=== PATIENT | female | born 1975 | race Two or more races ===

== ENCOUNTER 2019-08-11 11:31 | Outpatient (CLI) | payer OTHER ==
[2019-08-11] MEDS ORDERED: PRILOSEC OTC20 MG PO (12:25)
[2019-08-11] MEDS ORDERED: PEPCID AC20 MG PO (12:25)
== END 2019-08-12 09:09 | disposition home or self-care (01) ==
LOC: OFIC 805 11:31
PROVIDERS: ATTEND Otolaryngology
DX: J04.0 Acute laryngitis (principal); H81.12 Benign paroxysmal vertigo, left ear; R47.02 Dysphasia; K22.8 Other specified diseases of esophagus; H61.23 Impacted cerumen, bilateral